=== PATIENT | male | born 1980 | race Caucasian/White ===

== ENCOUNTER 2019-07-27 10:58 | Emergency (ER) | payer BC ==
[2019-07-27] MEDS ORDERED: Sodium Chloride 0.9% 1,000 ML IV ONE (11:16)
--- NOTE | 2019-07-27 11:17 | EDM.PDOC ---
ED HPI GENERAL MEDICAL PROBLEM - General Chief Complaint: ENT Problem Stated Complaint: weak, ill, headache Time Seen by Provider: 07/27/19 11:05 Source of Information: Reports: Patient, EMS History Limitations: Reports: No Limitations - History of Present Illness INITIAL COMMENTS - FREE TEXT/NARRATIVE: States feeling ill ongoing since last weekend. Has not been fully compliant with medications due to illness. Was seen in [facility] Thursday for chronic shoulder concerns, being ordered physical therapy 2 week follow-up as well as Voltaren oral and Rup rub. Has not improved actually worsening in his overall function and feeling with intermittent headache and what was acknowledged midway in the examination visit right upper dental sinus pain. His mood is variable likely due to lack of medication for at least 4 days. It was noted he answered he felt unsafe at home when nursing was questioning. This was reported to me and I addressed to him specifically the question as to why he felt unsafe. Mike stated "I don't think my wants me anymore." We discussed the fact that domestic disagreements due to mood and or feelings are not categorized as being unsafe unless there are threats or physical actions. He makes comments eluding to not understanding the question. As he has never been a patient in the [facility] system before with extensive medical history and ongoing treatment plans including medication, I ask why he chose to be brought here today by ambulance. He states "this is where she wanted me to come." During the visit I was told by his that she had commented this morning that if you do not start feeling better you need to get checked. "I never expected him to call an ambulance" In discussion it was stated by his when he is off his medications he is not as easy to get along with which is understandable. Neither democrat makes any inference of any physical or even verbal abuse issues occurring. Onset: Gradual Onset Date: 07/25/19 Onset Time: 12:00 Duration: Day(s): Location: Reports: Head, Abdomen Quality: Reports: Dull Severity: Moderate Improves with: Reports: None Worsens with: Reports: None Context: Reports: Sick Contact Associated Symptoms: Reports: Cough, Fever/Chills, Headaches, Weakness - Related Data Allergies Allergy/AdvReac Type Severity Reaction Status Date / Time No Known Drug Allergies Allergy Other Verified 07/27/19 11:29 Home Meds: Home Meds Amoxicillin/Clavulanate K [Augmentin 875-125 MG] 1 tab PO BID 10 Days #20 tablet 07/27/19 [Rx] Gabapentin [Neurontin] 900 mg PO BID 07/27/19 [History] OLANZapine [Olanzapine] 7.5 mg PO BEDTIME 07/27/19 [History] Past Medical History HEENT History: Reports: Other (See Below) (Septal irritation) Cardiovascular History: Reports: None Respiratory History: Reports: None Gastrointestinal History: Reports: None Genitourinary History: Reports: None Musculoskeletal History: Reports: Other (See Below) (Right shoulder pain) Neurological History: Reports: Seizure Psychiatric History: Reports: Addiction, Anxiety, Bipolar, Hallucinations, Mood Swings, Panic Attack, Schizophrenia Endocrine/Metabolic History: Reports: None Immunologic History: Reports: None Oncologic (Cancer) History: Reports: None - Past Surgical History Head Surgeries/Procedures: Reports: None - Past Imaging History Past Imaging History: Reports: CAT Scan, EEG, MRI Social & Family History - Family History Family Medical History: Noncontributory - Tobacco Use Smoking Status *Q: Light Tobacco Smoker Tobacco Use Within Last Twelve Months: Cigarettes Used Tobacco, but Quit: No Smoking Cessation Information Provided To Patient: Patient Refused Second Hand Smoke Exposure: No - Caffeine Use Caffeine Use: Reports: Soda - Alcohol Use Alcohol Use History: Yes Alcohol Use in Last Twelve Months: No Alcohol Use Frequency: Not Used in Over 6 Months (December 2023 year anniversary sobriety) - Recreational Drug Use Recreational Drug Use: No Drug Use in Last 12 Months: No - Sexual History Sexual History: Reports: Single Partner - Living Situation & Occupation Living situation: Reports: (12 year relationship), with Spouse ED ROS GENERAL - Review of Systems Review Of Systems: See Below Constitutional: Reports: Malaise, Weakness HEENT: Reports: No Symptoms Respiratory: Reports: Cough Cardiovascular: Reports: No Symptoms (Occasional nonproductive) Endocrine: Reports: Fatigue GI/Abdominal: Reports: Vomiting (1 event) : Reports: No Symptoms Musculoskeletal: Reports: Joint Pain (Chronic right shoulder possible rotator cuff attending therapy), Muscle Pain Skin: Reports: No Symptoms Neurological: Reports: Confusion, Headache Psychiatric: Reports: No Symptoms (Nothing beyond his ordinary process of which she is undergoing treatment at this time but acknowledges 3 or 4 days without medication) Hematologic/Lymphatic: Reports: No Symptoms Immunologic: Reports: No Symptoms Free Text/Narrative/Comment: Was seen in the clinic Thursday for review of his shoulder pain cannot get definitive answer if illness workup was performed at that time. states he has been ill since late last week and has not worked since Thursday ED EXAM, GENERAL - Physical Exam Exam: See Below General Appearance: Alert, WD/WN, No Apparent Distress Ears: Normal External Exam, Normal Canal, Hearing Grossly Normal, Normal TMs Nose: Normal Inspection, Normal Mucosa, No Blood Throat/Mouth: Normal Inspection, Normal Lips, Normal Teeth (#2 and #3 seem tender to palpation with a slight variation of the tissue appearance and color with mild inflammation.), Normal Gums, Normal Oropharynx, Normal Voice, No Airway Compromise, Inflammation Head: Atraumatic, Normocephalic, Facial Tenderness (Right side), Sinus Tenderness (Right side) Neck: Normal Inspection, Supple, Non-Tender, Full Range of Motion. No: Lymphadenopathy (L) Respiratory/Chest: No Respiratory Distress, Lungs Clear, Normal Breath Sounds, No Accessory Muscle Use, Chest Non-Tender Cardiovascular: Normal Peripheral Pulses, Regular Rate, Rhythm, No Edema, No Gallop, No JVD, No Murmur, No Rub GI/Abdominal: Normal Bowel Sounds, Soft, Non-Tender, No Organomegaly, No Distention, No Abnormal Bruit, No Mass (Male) Exam: Deferred Rectal (Males) Exam: Deferred Back Exam: Full Range of Motion Extremities: Normal Inspection, Normal Range of Motion, Non-Tender, No Pedal Edema Neurological: Alert, Oriented, CN II-XII Intact Skin Exam: Warm, Dry, Intact, Normal Color, No Rash Lymphatic: No Adenopathy EKG INTERPRETATION EKG Date: 07/27/19 Time: 11:42 Rhythm: NSR [place]: Normal P-Wave: Present QRS: Normal ST-T: Normal QT: Normal Comparison: NA - No Prior EKG Course - Vital Signs Last Recorded V/S: Last Vital Signs Temp 36.4 C 07/27/19 11:15 Pulse 80 07/27/19 12:46 Resp 17 07/27/19 12:15 BP 143/78 H 07/27/19 12:46 Pulse Ox 98 07/27/19 12:15 - Orders/Labs/Meds Orders: Active Orders 24 hr Category Date Time Status EKG Documentation Completion [RC] ASDIRECTED Care 07/27/19 11:17 Active Peripheral IV Care [RC] . DIRECTED Care 07/27/19 11:29 Active Chest 2V [CR] Stat Exams 07/27/19 11:58 Ordered Sodium Chloride 0.9% [Saline Flush] Med 07/27/19 11:29 Active 10 ml FLUSH Q8HR PRN Peripheral IV Insertion Adult [OM.PC] Routine Oth 07/27/19 11:29 Ordered EKG 12 Lead [EK] Routine Ther 07/27/19 11:17 Ordered Medication Orders Sodium Chloride (Saline Flush) 10 ml FLUSH Q8HR PRN PRN Reason: keep vein open Last Admin: 07/27/19 12:24 Dose: 10 ml Labs: Laboratory Tests 07/27/19 07/27/19 07/27/19 Range/Units 11: 11:20 12:05 WBC 12.63 H (5.00-10.00) 10^3/uL RBC 4.79 (4.50-6.00) 10^6/uL Hgb 15.4 (13.0-17.0) g/dL Hct 46.0 (40.0-52.0) % MCV 96.0 H (82.0-92.0) fL MCH 32.2 H (27.0-31.0) pg MCHC 33.5 (32.0-36.0) g/dL RDW 13.0 (11.5-14.5) % Plt Count 312 (150-400) 10^3/uL MPV 9.2 (7.4-10.4) fL Immature Gran % (Auto) 0.2 (0.0-5.0) % Neut % (Auto) 82.0 H (50.0-70.0) % Lymph % (Auto) 11.7 L (20.0-40.0) % [place] % (Auto) 5.6 (2.0-8.0) % Eos % (Auto) 0.3 L (1.0-3.0) % Baso % (Auto) 0.2 (0.0-1.0) % Immature Gran # (Auto) 0.03 (0.00-0.50) 10^3/uL Neut # (Auto) 10.35 H (2.50-7.00) 10^3/uL Lymph # (Auto) 1.48 (1.00-4.00) 10^3/uL [place] # (Auto) 0.71 (0.10-0.80) 10^3/uL Eos # (Auto) 0.04 L (0.10-0.30) 10^3/uL Baso # (Auto) 0.02 (0.00-0.10) 10^3/uL Sodium 140 (136-145) mmol/L Potassium 3.9 (3.3-5.3) mmol/L Chloride 105 (98-115) mmol/L Carbon Dioxide 23.6 (21.0-32.0) mmol/L Anion Gap 15.3 H (5-15) mmol/L BUN 12 (6-25) mg/dL Creatinine 0.72 (0.51-1.17) mg/dL Est Cr Clr Drug Dosing 140.47 mL/min Estimated GFR (MDRD) > 60 mL/min Glucose 109 H (75 - 99) mg/dL Calcium 9.4 (8.7-10.3) mg/dL Total Bilirubin 0.3 (0.2-1.0) mg/dL AST 22 (15-37) U/L ALT 32 (12-78) U/L Alkaline Phosphatase 80 (46-116) IU/L Total Protein 7.6 (6.4-8.2) g/dL Albumin 3.43 (3.00-4.80) g/dL Amylase 102 (25-125) U/L Lipase 234 (73-393) U/L Specimen Type . Urine Color Yellow (YELLOW) Urine Appearance Clear (CLEAR) Urine pH 6.5 (5.0-9.0) Ur Specific [place] 1.020 (1.005-1.030) Urine Protein Negative (NEGATIVE) mg/dL Urine Glucose (UA) Negative (NEGATIVE) mg/dL Urine Ketones 15 H (NEGATIVE) mg/dL Urine Occult Blood Negative (NEGATIVE) Urine Nitrite Negative (NEGATIVE) Urine Bilirubin Negative (NEGATIVE) Urine Urobilinogen 0.2 (0.2-1.0) E.U./dL Ur Leukocyte Esterase Negative (NEGATIVE) Urine Opiates Screen (NEGATIVE) Ur Oxycodone Screen (NEGATIVE) Urine Methadone Screen (NEGATIVE) Ur Propoxyphene Screen (NEGATIVE) Ur Barbiturates Screen (NEGATIVE) Ur Tricyclics Screen (NEGATIVE) Ur Phencyclidine Scrn (NEGATIVE) Ur Amphetamine Screen (NEGATIVE) U Methamphetamines Scrn (NEGATIVE) U Benzodiazepines Scrn (NEGATIVE) U Cocaine Metab Screen (NEGATIVE) U Marijuana (THC) Screen (NEGATIVE) 07/27/19 Range/Units 12:05 WBC (5.00-10.00) 10^3/uL RBC (4.50-6.00) 10^6/uL Hgb (13.0-17.0) g/dL Hct (40.0-52.0) % MCV (82.0-92.0) fL MCH (27.0-31.0) pg MCHC (32.0-36.0) g/dL RDW (11.5-14.5) % Plt Count (150-400) 10^3/uL MPV (7.4-10.4) fL Immature Gran % (Auto) (0.0-5.0) % Neut % (Auto) (50.0-70.0) % Lymph % (Auto) (20.0-40.0) % [place] % (Auto) (2.0-8.0) % Eos % (Auto) (1.0-3.0) % Baso % (Auto) (0.0-1.0) % Immature Gran # (Auto) (0.00-0.50) 10^3/uL Neut # (Auto) (2.50-7.00) 10^3/uL Lymph # (Auto) (1.00-4.00) 10^3/uL [place] # (Auto) (0.10-0.80) 10^3/uL Eos # (Auto) (0.10-0.30) 10^3/uL Baso # (Auto) (0.00-0.10) 10^3/uL Sodium (136-145) mmol/L Potassium (3.3-5.3) mmol/L Chloride (98-115) mmol/L Carbon Dioxide (21.0-32.0) mmol/L Anion Gap (5-15) mmol/L BUN (6-25) mg/dL Creatinine (0.51-1.17) mg/dL Est Cr Clr Drug Dosing mL/min Estimated GFR (MDRD) mL/min Glucose (75 - 99) mg/dL Calcium (8.7-10.3) mg/dL Total Bilirubin (0.2-1.0) mg/dL AST (15-37) U/L ALT (12-78) U/L Alkaline Phosphatase (46-116) IU/L Total Protein (6.4-8.2) g/dL Albumin (3.00-4.80) g/dL Amylase (25-125) U/L Lipase (73-393) U/L Specimen Type Urine Color (YELLOW) Urine Appearance (CLEAR) Urine pH (5.0-9.0) Ur Specific [place] (1.005-1.030) Urine Protein (NEGATIVE) mg/dL Urine Glucose (UA) (NEGATIVE) mg/dL Urine Ketones (NEGATIVE) mg/dL Urine Occult Blood (NEGATIVE) Urine Nitrite (NEGATIVE) Urine Bilirubin (NEGATIVE) Urine Urobilinogen (0.2-1.0) E.U./dL Ur Leukocyte Esterase (NEGATIVE) Urine Opiates Screen Negative (NEGATIVE) Ur Oxycodone Screen Negative (NEGATIVE) Urine Methadone Screen Negative (NEGATIVE) Ur Propoxyphene Screen Negative (NEGATIVE) Ur Barbiturates Screen Negative (NEGATIVE) Ur Tricyclics Screen Negative (NEGATIVE) Ur Phencyclidine Scrn Negative (NEGATIVE) Ur Amphetamine Screen Negative (NEGATIVE) U Methamphetamines Scrn Negative (NEGATIVE) U Benzodiazepines Scrn Negative (NEGATIVE) U Cocaine Metab Screen Negative (NEGATIVE) U Marijuana (THC) Screen Negative (NEGATIVE) Meds: Medications Generic Name Dose Route Start Last Admin Trade Name Freq PRN Reason Stop Dose Admin Sodium Chloride 10 ml 07/27/19 11:29 07/27/19 12:24 Saline Flush FLUSH 10 ml Q8HR PRN Administration keep vein open Discontinued Medications Generic Name Dose Route Start Last Admin Trade Name Freq PRN Reason Stop Dose Admin Sodium Chloride 1,000 mls @ 999 mls/hr 07/27/19 11:16 07/27/19 11:28 Normal Saline IV 07/27/19 12:16 999 mls/hr .BOLUS ONE Administration Ketorolac Tromethamine 30 mg 07/27/19 12:16 07/27/19 12:20 Toradol IVPUSH 07/27/19 12:17 30 mg ONETIME ONE Administration - Radiology Interpretation Free Text/Narrative:: Two-view chest shows no evidence of any infiltrate negative for hemothorax pneumothorax or infiltrate. React silhouette within normal limits. Over read pending Departure - Departure Time of Disposition: 13:15 Disposition: Home, Self-Care 01 Condition: Fair Clinical Impression: Malaise and fatigue, Pain, dental, Sinusitis, Headache - Discharge Information *PRESCRIPTION DRUG MONITORING PROGRAM REVIEWED*: Not Applicable *COPY OF PRESCRIPTION DRUG MONITORING REPORT IN PATIENT RASHI: Not Applicable Referrals: Medina Carranza MD [Primary Care Provider] - Forms: ED Department Discharge Additional Instructions: Take Augmentin twice daily for 10 days. You need to restart your other medications as directed. You need to see a dentist this week if no improvement or in the next 2 weeks if the discomfort to the right upper teeth improves with the antibiotic. Surgery medications for your shoulder strain as directed Recheck with physical therapy and your clinic as needed Call or return if questions or symptoms worsen [employer] capabilities form completed for no work for today. - Problem List & Annotations (1) Malaise and fatigue SNOMED Code(s): 306895139 Code(s): R53.81 - OTHER MALAISE; R53.83 - OTHER FATIGUE Status: Acute Priority: High Current Visit: Yes (2) Chronic right shoulder pain SNOMED Code(s): 04548690326059015 Code(s): M25.511 - PAIN IN RIGHT SHOULDER; G89.29 - OTHER CHRONIC PAIN Status: Chronic Priority: Medium Current Visit: No (3) Headache SNOMED Code(s): 35995020 Code(s): R51 - HEADACHE Status: Acute Priority: Medium Current Visit: Yes Qualifiers: Headache type: unspecified Intractability: not intractable (4) Seizure disorder SNOMED Code(s): 919252539 Code(s): G40.909 - EPILEPSY, UNSP, NOT INTRACTABLE, WITHOUT STATUS EPILEPTICUS Status: Chronic Priority: Medium Current Visit: Yes (5) History of psychiatric disorder SNOMED Code(s): 490949728 Code(s): Z86.59 - PERSONAL HISTORY OF OTHER MENTAL AND BEHAVIORAL DISORDERS Status: Chronic Priority: Medium Current Visit: Yes (6) Pain, dental SNOMED Code(s): 59911572 Code(s): K08.89 - OTHER SPECIFIED DISORDERS OF TEETH AND SUPPORTING STRUCTURES Status: Acute Current Visit: Yes (7) Sinusitis SNOMED Code(s): 34168005 Code(s): J32.9 - CHRONIC SINUSITIS, UNSPECIFIED Status: Acute Current Visit: Yes Qualifiers: Sinusitis location: maxillary Chronicity: acute - Problem List Review Problem List Initiated/Reviewed/Updated: Yes - My Orders Last 24 Hours: My Active Orders 07/27/19 11:17 EKG Documentation Completion [RC] ASDIRECTED EKG 12 Lead [EK] Routine 07/27/19 11:29 Peripheral IV Care [RC] . DIRECTED Sodium Chloride 0.9% [Saline Flush] 10 ml FLUSH Q8HR PRN Peripheral IV Insertion Adult [OM.PC] Routine 07/27/19 11:58 Chest 2V [CR] Stat - Assessment/Plan Last 24 Hours: My Active Orders 07/27/19 11:17 EKG Documentation Completion [RC] ASDIRECTED EKG 12 Lead [EK] Routine 07/27/19 11:29 Peripheral IV Care [RC] . DIRECTED Sodium Chloride 0.9% [Saline Flush] 10 ml FLUSH Q8HR PRN Peripheral IV Insertion Adult [OM.PC] Routine 07/27/19 11:58 Chest 2V [CR] Stat Plan: Take Augmentin twice daily for 10 days. You need to restart your other medications as directed. You need to see a dentist this week if no improvement or in the next 2 weeks if the discomfort to the right upper teeth improves with the antibiotic. Surgery medications for your shoulder strain as directed Recheck with physical therapy and your clinic as needed Call or return if questions or symptoms worsen [employer] capabilities form completed for no work for today.
[2019-07-27] MEDS ORDERED: Sodium Chloride 0.9% 10 ML Syringe FLUSH PRN (11:29)
[2019-07-27 12:02] LABS: ANION GAP 15.3 mmol/L (5-15); CHLORIDE,CL 105 mmol/L (98-115); SODIUM,NA 140 mmol/L (136-145)
[2019-07-27] MEDS ORDERED: Ketorolac 30 MG/ML SDV IVPUSH ONE (12:16)
[2019-07-27 12:27] LABS: BARBITURATE SCREEN,URINE NEGATIVE (NEGATIVE); BENZODIAZEPINES SCREEN,URINE NEGATIVE (NEGATIVE); TCA SCREEN,URINE NEGATIVE (NEGATIVE); THC SCREEN,URINE 50 NG/ML NEGATIVE (NEGATIVE)
[2019-07-27 12:47] VITALS: BP 143/78; PULSE 80
--- NOTE | 2019-07-27 13:02 | CR ---
[id number] RAD/RAD Chest PA And Lateral EXAM: RAD Chest PA And Lateral INDICATION: COUGH. COMPARISON: None. DISCUSSION: Cardiomediastinal silhouette is normal in size and contour. No infiltrate, effusion, pneumothorax, or edema. IMPRESSION: Negative examination of the chest. Demetrio Del Rio MD 07/27/19 [id number] Thank you for allowing us to participate in the care of your patient.
== END 2019-07-27 13:10 | disposition home or self-care (01) ==
LOC: MERGE 10:58 → KA.ED 10:58
DX: J32.9 Chronic sinusitis, unspecified (principal); K08.89 Other specified disorders of teeth and supporting structures; F17.210 Nicotine dependence, cigarettes, uncomplicated
CPT/HCPCS: 36415; 71046; 80053; 80305; 81003; 82150; 83690; 85025; 87804; 93005; 96361; 96374; 99285; J1885; J7030